=== PATIENT | female | born 1960 | race Caucasian/White ===

== ENCOUNTER 2018-06-06 05:44 | Inpatient (IN) | payer OTHER ==
[2018-06-06] MEDS: CEFAZOLIN 2 GM/50 ML (PMX) 50 ML (FOR WT < 120 KG) IVPB (06:00)
[2018-06-06] MEDS: SOD CHLORIDE 0.9% 1,000 ML IV (06:00)
[2018-06-06] MEDS ORDERED: LIDOCAINE 2% (SDV) 5 ML INJ (06:25)
[2018-06-06] MEDS ORDERED: NEOSTIGMINE 3 MG/3 ML SYRINGE (06:25)
[2018-06-06] MEDS ORDERED: ROCURONIUM 50 MG INJ (06:25)
[2018-06-06] MEDS ORDERED: PROPOFOL 20 ML (06:25)
[2018-06-06] MEDS ORDERED: GLYCOPYRROLATE 0.4 MG INJ (06:25)
[2018-06-06] MEDS ORDERED: ONDANSETRON 4 MG INJ (06:26)
[2018-06-06] MEDS ORDERED: MIDAZOLAM 1 MG/ML 2 ML INJ (06:26)
[2018-06-06] MEDS ORDERED: DEXAMETHASONE 4 MG/ML 1 ML INJ (06:26)
[2018-06-06] MEDS ORDERED: FENTAnyl 50 MCG/ML VIAL (06:26)
[2018-06-06] MEDS: LACTATED RINGER'S 1,000 ML IV ×3 (06:28→22:06)
[2018-06-06] MEDS ORDERED: HYDROmorphONE 1 MG/5 ML IV SYRINGE IV ×3 (06:30)
[2018-06-06] MEDS ORDERED: OXYCODONE/ACETAMINOPHEN (5/325) TAB PO ×3 (06:30→11:30)
[2018-06-06] MEDS ORDERED: morphine (1 MG/ML) 10ML SYRINGE IV ×3 (06:30)
[2018-06-06] MEDS ORDERED: FENTAnyl 50 MCG/ML VIAL IV ×2 (06:30)
[2018-06-06] MEDS ORDERED: LABETALOL HCL 20MG INJ IV (06:30)
[2018-06-06] MEDS ORDERED: DIPHENHYDRAMINE 50 MG INJ IV ×2 (06:30→11:30)
[2018-06-06] MEDS ORDERED: MIDAZOLAM 1 MG/ML 2 ML INJ IV (06:30)
[2018-06-06] MEDS ORDERED: ATROPINE 1 MG/10 ML SYRINGE IV (06:30)
[2018-06-06] MEDS ORDERED: EPHEDrine SULFATE 50 MG/5 ML SYG IV (06:30)
[2018-06-06] MEDS ORDERED: MEPERIDINE 25 MG INJ IV (06:30)
[2018-06-06] MEDS ORDERED: ONDANSETRON 4 MG INJ IV ×2 (06:30→11:30)
[2018-06-06] MEDS ORDERED: hydrALAzine 20 MG INJ IV (06:30)
[2018-06-06] MEDS ORDERED: morphine SULFATE/PF (10 MG/10 ML) INJ (06:42)
[2018-06-06] MEDS ORDERED: BUPIVACAINE 0.75%/DEXT (SPINAL) 2 ML INJ ×2 (06:42→08:16)
[2018-06-06 06:44] LABS: INR 0.88; PT RATIO 0.9
[2018-06-06 06:45] LABS: PARTIAL THROMBOPLASTIN TIME 29.3 Sec (25.0-35.0)
[2018-06-06] MEDS ORDERED: FLUMAZENIL 0.5 MG INJ (10:42)
[2018-06-06] MEDS ORDERED: KETOROLAC 30 MG INJ IV (11:30)
[2018-06-07] MEDS: SOD CHLORIDE 0.9% 1,000 ML IV (06:00)
[2018-06-07 06:31] LABS: ADD MAN DIFF? NO
[2018-06-07 06:39] LABS: BASOPHILS % 0.2 % (0.0-2.0); EOSINOPHILS % 0.1 % (0.0-7.0); HEMATOCRIT 33.5 % (37.0-47.0); LYMPHOCYTES # 1.7 10^3/ul (0.8-2.9); LYMPHOCYTES % 13.7 % (15.0-51.0); MEAN CORPUSCULAR HEMOGLOBIN 30.6 pg (29.0-33.0); MEAN CORPUSCULAR HGB CONC 32.8 g/dl (32.0-37.0); MEAN CORPUSCULAR VOLUME 93.3 fl (82.0-101.0); MEAN PLATELET VOLUME 10.7 fl (7.4-10.4); MONOCYTE # 1.3 10^3/ul (0.3-0.9); NEUTROPHIL # 9.6 10^3/ul (1.6-7.5); NEUTROPHILS % 75.5 % (39.0-77.0); PLATELET COUNT 270 10^3/UL (140-415); RED BLOOD COUNT 3.59 10^6/ul (4.20-5.40); RED CELL DISTRIBUTION WIDTH 12.6 % (11.5-14.5)
[2018-06-07 06:39] LABS: WHITE BLOOD COUNT 12.7 10^3/ul (4.8-10.8)
[2018-06-07] MEDS: LACTATED RINGER'S 1,000 ML IV (07:20)
[2018-06-08] MEDS: SOD CHLORIDE 0.9% 1,000 ML IV (04:54)
== END 2018-06-08 19:40 | disposition home or self-care (01) | DRG 743 ==
LOC: REC 05:44 → PP2 12:26
PROC: 0UT90ZZ Resection of Uterus, Open Approach (ICD-10-PCS; principal; 2018-06-06 07:30)
DX: N81.4 Uterovaginal prolapse, unspecified (principal)
CPT/HCPCS: 85025; 85610; 85730; 86850; 86900; 86901; 87086; 88307; 93005